=== PATIENT | female | born 2005 | race Caucasian/White ===

== ENCOUNTER 2024-08-07 20:33 | Emergency (ER) | payer OTHER, SELFPAY ==
--- NOTE | 2024-08-07 20:49 | ECG_ITS ---
Test Date: 2024-08-07 20:59:28 Measurements Intervals [place] Rate: 73 P: 58 IA: 151 QRS: 49 QRSD: 93 T: 37 QT: 381 QTc: 422 Interpretive Statements SINUS RHYTHM WITH OCCASIONAL ATRIAL PREMATURE COMPLEXES BORDERLINE T WAVE ABNORMALITY- ANTERIOR LEADS BASELINE ARTIFACT- I, III, AVR, AVL, V1-V6 BORDERLINE ECG No previous ECG available for comparison Electronically Signed On 08-08-2024 06:13:11 CDT by Zohaib Colbert D.O.
[2024-08-07 20:56] VITALS: BP 140/89; PULSE 64; RESP 16; TEMP 36.4; O2SAT 100
[2024-08-07 21:54] VITALS: BP 129/87; PULSE 107; RESP 16; O2SAT 100
--- NOTE | 2024-08-07 21:54 | PC.NURSE ---
Pt. approached nurses station tearful and anxious. States it feels like my body is locking up. Pt. moving all extremities. Ambulatory with a steady gait. Speech clear. VS re-checked. VSS at this time.
--- NOTE | 2024-08-07 22:35 | ED_ITS ---
HPI - General Adult General Chief complaint: Unspecified Stated complaint: numbness/tingling Time Seen by Provider: 08/07/24 22:14 History of Present Illness HPI narrative: 18-year-old female presents to the emergency department for evaluation for heart palpitations and feeling ill. Patient states that she had been at a music festival and suspects that she was dehydrated last night. Patient did have some nausea vomiting. While patient was driving back home today she was tired so she did drink a 5 hour any drink and began feeling worse. Upon initial evaluation patient states she does feel improved. Patient is not tachycardic and patient's EKG shows normal sinus rhythm. Patient denies any recent drug use. patient denies any prior cardiac history. Related Data Allergies Allergy/AdvReac Type Severity Reaction Status Date / Time No Known Allergies Allergy Verified 08/07/24 20:35 Review of Systems 2 Review of Systems: All systems reviewed & are unremarkable except as noted in HPI and below Exam 2 Narrative: APPEARANCE: Well appearing, no pain, no distress, well-nourished. HEAD: normocephalic, atraumatic. EYES: PERRLA/EOMI, conjunctivae clear. NOSE: Normal no drainage EARS:TMS clear with good light reflex. THROAT: Pharynx clear, no exudate. NECK: Supple. No adenopathy, no masses. RESPIRATORY: Airway patent, respirations nonlabored. Clear to auscultation bilaterally, no rales, rhonchi, wheezing. CARDIOVASCULAR: Regular rate and rhythm without murmurs rubs or gallops. ABDOMINAL: Soft, nontender, nondistended, normal bowel sounds MUSCULOSKELETAL: Moves all extremities. Strength/ROM intact, No edema, No calf tenderness. NEURO: Alert. Cranial nerves II through XII intact. Good gait. Good coordination SKIN: Warm, dry. Normal Color Course Vital Signs Vital signs: Vital Signs Temperature 97.6 F 08/07/24 20:56 Pulse Rate 64 08/07/24 20:56 Respiratory Rate 16 08/07/24 20:56 Blood Pressure 140/89 08/07/24 20:56 Pulse Oximetry 100 08/07/24 20:56 Oxygen Delivery Room Air 08/07/24 20:56 Temperature 97.6 F 08/07/24 20:56 Pulse Rate 56 L 08/08/24 01:00 Respiratory Rate 16 08/08/24 01:06 Blood Pressure 115/95 H 08/08/24 01:00 Pulse Oximetry 100 08/08/24 01:06 Oxygen Delivery Room Air 08/07/24 20:56 Medical Decision Making [facility] Narrative Medical decision making narrative: 18-year-old female presents emergency department for evaluation for tachycardia. Patient is currently afebrile with no leukocytosis hemoglobin of 12.5. Patient did have a potassium of 3.0 this was replaced orally. Patient was also treated with 2 L of lactated Ringer's. Patient did feel improved with treatment. Patient family updated the results of the workup. Patient was encouraged of close follow-up with her primary care physician. Differential Diagnosis Differential Diagnosis: SVT, AFib, dehydration, anxiety Vital Signs Vital Signs: Vital Signs Temperature 97.6 F 08/07/24 20:56 Pulse Rate 64 08/07/24 20:56 Respiratory Rate 16 08/07/24 20:56 Blood Pressure 140/89 08/07/24 20:56 Pulse Oximetry 100 08/07/24 20:56 Oxygen Delivery Room Air 08/07/24 20:56 Temperature 97.6 F 08/07/24 20:56 Pulse Rate 56 L 08/08/24 01:00 Respiratory Rate 16 08/08/24 01:06 Blood Pressure 115/95 H 08/08/24 01:00 Pulse Oximetry 100 08/08/24 01:06 Oxygen Delivery Room Air 08/07/24 20:56 Lab Data Lab results reviewed: Yes I reviewed the patient's lab results. 08/07/24 22:41 08/07/24 22:41 Labs: Lab Results 08/07/24 08/07/24 Range/Units 22:41 23:17 WBC 9.4 (4.5-10.0) K/mm3 RBC 4.28 (4.2-5.4) M/mm3 Hgb 12.5 (12.0-15.0) g/dL Hct 37.0 (37.0-47.0) % MCV 86.4 (80-100) fl MCH 29.2 (26-34) pg MCHC 33.8 (32-36) g/dl RDW 12.3 (11.5-14.5) % Plt Count 289 (150-375) k/mm3 MPV 11.1 H (7.4-10.4) fl Immature Gran % (Auto) 0.3 (0-0.5) % Neut % (Auto) 74.8 H (45.5-73.1) % Lymph % (Auto) 17.2 L (18.3-44.2) % [place] % (Auto) 6.0 (2.6-8.5) % Eos % (Auto) 1.4 (0-4.4) % Baso % (Auto) 0.3 (0.2-1.2) % Lymph # (Auto) 1.61 (0.9-3.2) K/mm3 [place] # (Auto) 0.6 (0.1-0.6) K/mm3 Eos # (Auto) 0.1 (0-0.3) K/mm3 Baso # (Auto) 0.0 (0.0-0.1) K/mm3 Abs Immat Gran (auto) 0.03 (0.00-0.031) K/mm3 Absolute Neuts (auto) 7.0 H (1.3-6.7) K/mm3 Absolute Nucleated RBC 0.000 (0.0-0.012) K/mm3 Nucleated RBC % 0.0 (0.0-0.2) % Sodium 141 (137-145) mmol/L Potassium 3.0 L (3.4-5.0) mmol/L Chloride 108 H (98-107) mmol/L Carbon Dioxide 21 L (22-30) mmol/L Anion Gap 12 (4-12) mmol/L BUN 5 L (7-17) mg/dL Creatinine 0.70 (0.7-1.0) mg/dL Estim Creat Clear Calc 107 ml/min Estimated GFR > 60 (59 - ) Glucose 116 H (65-110) mg/dL Calcium 9.2 (8.4-10.2) mg/dL Magnesium 2.0 (1.6-2.3) mg/dL Total Bilirubin 0.4 (0.2-1.3) mg/dL AST 26 (14-36) U/L ALT 22 (6-35) U/L Alkaline Phosphatase 50 (38-126) U/L Total Protein 7.8 (6.3-8.2) g/dL Albumin 4.5 (3.5-5.1) g/dL TSH (Reflex) 2.570 (0.465-4.68) uIU/mL Discharge Plan Discharge Clinical Impression: Heart palpitations, Acute dehydration Patient Disposition: Home Condition: Stable Instructions: Antibiotic Form, Heart Palpitations (DC), Dehydration (DC) Additional Instructions: Drink plenty of fluids. Have close follow-up with your primary care physician. If you have any worsening symptoms and please call or return to the emergency department. Patient Language: [place] Follow-up/Referrals: PHYSICIAN,MEDICAL ASSISTANT OB GYN [Primary Care Provider] -
[2024-08-07] MEDS: LACTATED RINGERS 2,000 ML 999 ML IV CONT (22:39)
[2024-08-07 22:51] LABS: Basophils Percent Auto 0.3 % (0.2-1.2); Eosinophils Absolute Auto 0.1 K/mm3 (0-0.3); Eosinophils Percent Auto 1.4 % (0-4.4); Hemoglobin 12.5 g/dL (12.0-15.0); Immature Granulocyte Absolute 0.03 K/mm3 (0.00-0.031); Immature Granulocyte Percent A 0.3 % (0-0.5); Lymphocytes Absolute Auto 1.61 K/mm3 (0.9-3.2); Lymphocytes Percent Auto 17.2 % (18.3-44.2); Mean Corpuscular HGB Conc 33.8 g/dl (32-36); Mean Corpuscular Hemoglobin 29.2 pg (26-34); Mean Corpuscular Volume 86.4 fl (80-100); Mean Platelet Volume 11.1 fl (7.4-10.4); Monocytes Absolute Auto 0.6 K/mm3 (0.1-0.6); Neutrophils Percent Auto 74.8 % (45.5-73.1); Platelet Count Result 289 k/mm3 (150-375); Red Blood Count 4.28 M/mm3 (4.2-5.4); Red Cell Distribution Width 12.3 % (11.5-14.5); White Blood Count 9.4 K/mm3 (4.5-10.0)
[2024-08-07 23:07] LABS: Alanine Aminotransferase 22 U/L (6-35); Albumin Level 4.5 g/dL (3.5-5.1); Alkaline Phosphatase 50 U/L (38-126); Anion Gap 12 mmol/L (4-12); Aspartate Amino Transferase 26 U/L (14-36); Bilirubin,Total 0.4 mg/dL (0.2-1.3); Blood Urea Nitrogen 5 mg/dL (7-17); Calcium 9.2 mg/dL (8.4-10.2); Carbon Dioxide 21 mmol/L (22-30); Chloride 108 mmol/L (98-107); Estimated CRCL calculation 107 ml/min; Estimated Glomerular Filt Rate > 60; Glucose 116 mg/dL (65-110); Sodium 141 mmol/L (137-145); Total Protein 7.8 g/dL (6.3-8.2)
[2024-08-07] MEDS: POTASSIUM CHLORIDE 20 MEQ PACKET (FOR LIQUID) 40 MEQ PO (23:21)
[2024-08-08 01:00] VITALS: BP 115/95; PULSE 56; RESP 16; O2SAT 100
[2024-08-08 01:06] VITALS: RESP 16; O2SAT 100
== END 2024-08-08 01:05 | disposition home or self-care (01) ==
PROVIDERS: Emergency Provider Emergency Medicine
DX: R00.2 Palpitations (principal); E86.0 Dehydration; I49.1 Atrial premature depolarization; R94.31 Abnormal electrocardiogram [ECG] [EKG]
CPT/HCPCS: 36415; 80053; 83735; 84443; 85025; 93005; 96360; 96361; 99283; A9270; J7120